=== PATIENT | male | born 1965 | race Caucasian/White ===

== ENCOUNTER → 2019-07-28 | Outpatient (CLI) | payer OTHER ==
--- NOTE | 2019-07-28 15:52 | KCIC ---
Limited left groin ultrasound dated 07/28/2019. No comparison available. Clinical data indication: Left inguinal pain. FINDINGS: Limited sonographic imaging performed of the area of pain the left groin with or without Valsalva maneuver. There is no apparent inguinal hernia defect. No fluid collection or mass at the left groin. There are no pathologically enlarged left inguinal lymph nodes in the region. IMPRESSION: No sonographic abnormality of left groin. Electronically signed by: Rajat Dean MD (07/28/2019 3:02 PM) [id number]
== END | disposition home or self-care (01) ==
LOC: KCIC US 11:39
DX: K40.90 Unilateral inguinal hernia, without obstruction or gangrene, not specified as recurrent (principal)
CPT/HCPCS: 76881